=== PATIENT | male | born 1935 | race Two or more races ===

== ENCOUNTER 2017-09-23 07:16 | Inpatient (IN) | payer OTHER ==
[~2017-09-23] VITALS: Ht 170.2 cm; Wt 73.5 kg
[2017-09-23] MEDS ORDERED: ALBUTEROL (0.083%) 2.5MG/3ML NEB HHN STA (07:29)
[2017-09-23] MEDS ORDERED: IPRATROPIUM BROMIDE (0.02%) 0.5MG/2.5ML NEB HHN STA (07:29)
[2017-09-23] MEDS ORDERED: MAGNESIUM 2 G PREMIX 50 ML IV STA (07:29)
[2017-09-23] MEDS ORDERED: METHYLPREDNISOLONE SOD SUCC 125 MG/2 ML VIAL IV STA (07:29)
[2017-09-23] MEDS ORDERED: SODIUM CHLORIDE 0.9% 1,000 ML IV ONE (07:42)
[2017-09-23] MEDS ORDERED: LEVOFLOXACIN 750MG PREMIX 150 ML IV ONE (07:45)
[2017-09-23] MEDS ORDERED: ALBUTEROL (0.5%) 2.5MG/0.5ML NEB HHN ONE (07:48)
[2017-09-23] MEDS ORDERED: ALBUTEROL (0.083%) 2.5MG/3ML NEB ONE (07:49)
[2017-09-23] MEDS ORDERED: IPRATROPIUM BROMIDE (0.02%) 0.5MG/2.5ML NEB ONE (07:49)
[2017-09-23 07:58] LABS: BASOPHILS % 1.3 % (0.0-2.0); EOSINOPHILS % 14.1 % (0.0-5.0); HEMATOCRIT. 49.8 % (42.0-52.0); HEMOGLOBIN. 17.4 g/dL (14.0-18.0); LYMPHOCYTES % 15.8 % (20.0-50.0); MEAN CORPUSCULAR HEMOGLOBIN 31.5 pg (28.0-32.0); MEAN CORPUSCULAR VOLUME 90.5 fL (80.0-94.0); MONOCYTES % 7.5 % (2.0-8.0); NEUTROPHILS % 61.3 % (40.0-76.0); PLATELET 229 x1000/uL (130-400); RED BLOOD CELL COUNT 5.51 mill/uL (4.7-6.1); RED CELL DISTRIBUTION WIDTH 13.6 % (11.6-14.6)
[2017-09-23 08:06] LABS: INR 1.1
[2017-09-23] MEDS ORDERED: ENALAPRIL 2.5MG/2ML VIAL 2ML IV ONE (08:15)
[2017-09-23 08:16] LABS: CARBON DIOXIDE 27 mEq/L (21-32); CHLORIDE 106 mEq/L (98-107); TROPONIN I < 0.02 ng/mL (0.00-0.04)
[2017-09-23] MEDS ORDERED: MAGNESIUM/ALUMINUM HYDROXIDE/SIMETHICONE 30ML UDC PO PRN (12:00)
[2017-09-23] MEDS ORDERED: ONDANSETRON HCL 4MG/2ML VIAL IV PRN (12:00)
[2017-09-23] MEDS ORDERED: LORAZEPAM 0.5MG TABLET PO PRN (12:00)
[2017-09-23] MEDS ORDERED: ACETAMINOPHEN 325MG TABLET PO PRN (12:00)
[2017-09-23] MEDS ORDERED: HYDROCODONE/ACETAMINOPHEN 5/325MG TABLET PO PRN (12:00)
[2017-09-23] MEDS ORDERED: HYDROMORPHONE HCL/PF 2MG/ML CPJ IV PRN (12:00)
[2017-09-23] MEDS ORDERED: CLONIDINE 0.1MG TABLET PO PRN (12:00)
[2017-09-23] MEDS ORDERED: DOCUSATE SODIUM 100MG CAPSULE PO PRN (12:00)
[2017-09-23] MEDS ORDERED: DIPHENHYDRAMINE 50MG/ML VIAL IV PRN (12:00)
[2017-09-23 12:02] VITALS: BP 162/84
[2017-09-23] MEDS ORDERED: ATOR40TA70 PO (14:58)
[2017-09-23] MEDS ORDERED: GLIP5TAB12 PO (14:58)
[2017-09-23] MEDS ORDERED: LISI-604 PO (14:58)
[2017-09-23 15:56] LABS: CHLORIDE 108 mEq/L (98-107)
[2017-09-23 16:00] VITALS: BP 155/80
[2017-09-23] MEDS ORDERED: NA PHOS,M-B/NA PHOS,DI-BA ENEMA 118ML PR PRN (16:00)
[2017-09-23 16:02] LABS: CARBON DIOXIDE 19 mEq/L (21-32)
[2017-09-23] MEDS: ENOXAPARIN 40MG/0.4ML SYR SUBCUT SCH (17:30)
[2017-09-23] MEDS: IPRATROPIUM/ALBUTEROL 0.5-3(2.5)MG/3ML NEB INH PRN ×2 (17:32→21:00)
[2017-09-23 20:00] VITALS: BP 138/70
[2017-09-23] MEDS ORDERED: DEXTROSE 50% WATER 50ML SYRINGE IV PRN (20:30)
[2017-09-23] MEDS: BLOOD SUGAR DIAGNOSTIC STRIP TEST SCH (20:42)
[2017-09-23] MEDS: LISINOPRIL 20MG TABLET PO SCH (20:52)
[2017-09-23] MEDS: ATORVASTATIN CALCIUM 40MG TABLET PO SCH (20:52)
[2017-09-23] MEDS: INSULIN LISPRO 100 UNITS/ML SUBCUT SCH (21:00)
[2017-09-23] MEDS: GUAIFENESIN 200MG/10ML SUGAR FREE UDC PO PRN (21:03)
[2017-09-24] VITALS (7 sets, daily range): BP systolic 116–154; BP diastolic 59–79
[2017-09-24] MEDS: BLOOD SUGAR DIAGNOSTIC STRIP TEST SCH ×4 (05:57→21:00)
[2017-09-24] MEDS: INSULIN LISPRO 100 UNITS/ML SUBCUT SCH ×4 (05:59→22:08)
[2017-09-24 07:02] LABS: HEMATOCRIT. 43.8 % (42.0-52.0); HEMOGLOBIN. 15.3 g/dL (14.0-18.0); MEAN CORPUSCULAR HEMOGLOBIN 31.3 pg (28.0-32.0); MEAN CORPUSCULAR VOLUME 89.8 fL (80.0-94.0); MEAN PLATELET VOLUME 7.3 fl (7.4-10.4); PLATELET 220 x1000/uL (130-400); RED BLOOD CELL COUNT 4.88 mill/uL (4.7-6.1); RED CELL DISTRIBUTION WIDTH 13.9 % (11.6-14.6)
[2017-09-24] MEDS: GUAIFENESIN 200MG/10ML SUGAR FREE UDC PO PRN (07:07)
[2017-09-24] MEDS ORDERED: GLIPIZIDE 5MG TABLET PO SCH (07:10)
[2017-09-24 07:53] LABS: CHLORIDE 109 mEq/L (98-107)
[2017-09-24] MEDS ORDERED: LEVOFLOXACIN 500MG PREMIX 100 ML IV SCH (08:00)
[2017-09-24 08:16] LABS: CARBON DIOXIDE 23 mEq/L (21-32); HDL CHOLESTEROL 32 mg/dL (40-59); LDL CHOLESTEROL 65 mg/dL (5-100); T4 FREE 0.95 ng/dL (0.76-1.46)
[2017-09-24] MEDS: LISINOPRIL 20MG TABLET PO SCH (08:53)
[2017-09-24] MEDS ORDERED: ASPIRIN 81MG EC TABLET PO SCH (09:00)
[2017-09-24 13:38] LABS: PLATELET ESTIMATE NORMAL
[2017-09-24] MEDS ORDERED: METHYLPREDNISOLONE SOD SUCC 125 MG/2 ML VIAL IV NR (14:15)
[2017-09-24] MEDS ORDERED: BUDESONIDE 0.5MG/2ML NEB HHN SCH (16:00)
[2017-09-24] MEDS ORDERED: IPRATROPIUM/ALBUTEROL 0.5-3(2.5)MG/3ML NEB HHN SCH (16:00)
[2017-09-24] MEDS: ENOXAPARIN 40MG/0.4ML SYR SUBCUT SCH (18:08)
[2017-09-24] MEDS: ATORVASTATIN CALCIUM 40MG TABLET PO SCH (21:28)
[2017-09-24] MEDS ORDERED: METHYLPREDNISOLONE SOD SUCC 40 MG/ML VIAL IV SCH (22:00)
== END 2017-09-24 22:32 | disposition short-term general hospital (02) | DRG 177 ==
LOC: ER 08:17 → EDBEDREQ 08:36 → EDBEDREQTM 08:36 → 8WST 10:23 → ENRESERV 10:23 → EDBEDREQ 11:13
PROVIDERS: ADMIT Internal Medicine; ATTEND Internal Medicine
DX: J69.0 Pneumonitis due to inhalation of food and vomit (principal); J96.00 Acute respiratory failure, unspecified whether with hypoxia or hypercapnia; I11.0 Hypertensive heart disease with heart failure; R65.10 Systemic inflammatory response syndrome (SIRS) of non-infectious origin without acute organ dysfunction; I50.9 Heart failure, unspecified; E11.9 Type 2 diabetes mellitus without complications; J20.9 Acute bronchitis, unspecified; E78.5 Hyperlipidemia, unspecified; Z60.2 Problems related to living alone; J45.909 Unspecified asthma, uncomplicated; Z79.899 Other long term (current) drug therapy; Z79.84 Long term (current) use of oral hypoglycemic drugs
CPT/HCPCS: 36415; 71010; 80048; 80053; 80061; 82962; 83605; 83690; 83880; 84439; 84443; 84484; 85025; 85610; 87040; 93005; 94640; 94664; 96365; 96366; 96367; 96368; 96375; 99291; J1650; J1815; J1956; J2920; J2930; J3475; J3490; J7030; J7040; J7611; J7620